=== PATIENT | male | born 1995 | race Caucasian/White ===

== ENCOUNTER 2021-04-06 05:51 | Emergency (ER) | payer SELFPAY ==
[~2021-04-06] VITALS: Ht 180 cm; Wt 69.8 kg
[2021-04-06 05:58] VITALS: BP 126/82
--- NOTE | 2021-04-06 06:26 | ED Respiratory ---
General Chief Complaint: Respiratory Problems Stated Complaint: TROUBLE BREATHING/COUGH Nursing Triage Note: PT STATES HE HAS HAD DIFFICULTIES BREATHING X2 HOURS. WOKE UP AND HAS BEEN UNABLE TO FALL BACK ASLEEP DUE TO NOT BEING ABLE TO TAKE A DEEP BREATH. PT AMBULATORY TO ROOM, VSS, AFEBRILE. PT SPEAKING FULL SENTENCES W/O DIFFICULTY. History of Present Illness Date Seen by Provider: Apr 06, 2021 Time Seen by Provider: 06:10 Initial Comments 25-year-old male reports feeling like he is having difficulty breathing. Patient reports that started about 2 hours prior coming in. He reports he is feeling like he is got some chest tightness and that he is not able to take full deep breaths. Patient reports a history of asthma/reactive airway disease in the past that has had to have inhaler in the past. Patient denies any fever, chills, cough, chest pain, nausea, vomiting or other systemic complaints. Patient does not currently have an inhaler and has not had a use 1 for least a year. Patient reports he is fully vaccinated for Covid and has no known Covid exposure Allergies and Home Medications Patient Home Medication List Home Medication List Reviewed: Yes Review of Systems Review of Systems Constitutional: No chills, No fever EENTM: no symptoms reported Respiratory: see HPI Cardiovascular: No chest pain, No palpitations Gastrointestinal: no symptoms reported; No abdominal pain, No nausea, No vomiting Genitourinary: no symptoms reported Musculoskeletal: no symptoms reported Skin: no symptoms reported Psychiatric/Neurological: No Symptoms Reported Hematologic/Lymphatic: No Symptoms Reported Immunological/Allergic: no symptoms reported Past [id number] Hx Patient Social History Tobacco Use?: No Use of E-Cig and/or Vaping dev: No Substance use?: No Alcohol Use?: No Pt feels they are or have been: No Physical Exam Vital Signs - First Documented 04/06/21 05:58 Temp 36.8 Pulse 75 Resp 12 B/P (MAP) 126/82 (97) Pulse Ox 100 O2 Delivery Room Air Capillary Refill : Less Than 3 Seconds Height: '" Weight: lbs. oz. kg; 21.00 BMI Method: General Appearance: WD/WN, no apparent distress Neck: full range of motion, supple Respiratory: no respiratory distress, no accessory muscle use, wheezing (Very mild occasional expiratory wheezing bilateral) Cardiovascular: normal peripheral pulses, regular rate, rhythm Gastrointestinal: non tender, soft Neurologic/Psychiatric: media job titles II-XII nml as tested, no motor/sensory deficits, alert, normal mood/affect, oriented x 3 Skin: normal color, warm/dry Progress/Results/Core Measures Suspected Sepsis SIRS Temperature: Pulse: 75 Respiratory Rate: 12 Blood Pressure 126 /82 Mean: 97 Results/Orders Vital Signs/I&O 04/06/21 05:58 Temp 36.8 Pulse 75 Resp 12 B/P (MAP) 126/82 (97) Pulse Ox 100 O2 Delivery Room Air Capillary Refill : Less Than 3 Seconds Blood Pressure Mean: 97 Progress Note : Progress Note Patient with some very minimal occasional mild wheezing. I suspect these may be early in having a reactive airway disease/asthma reaction. This time I do not feel he warrants steroids but I will start him on an inhaler. Patient should follow-up with a primary care provider or return to the ER if his symptoms worsen. Patient stable and discharged home Departure Impression Primary Impression: Wheezing on expiration Additional Impression: History of asthma Disposition: HOME, SELF-CARE Condition: Stable Departure-Patient Inst. Referrals: ALDEN XIAO MD (PCP/Family) Primary Care Physician Patient Instructions: Wheezing, Asthma in Adults Add. Discharge Instructions: Follow-up with your primary care provider, urgent care or return to the ER if symptoms worsen. Use the prescribed inhaler every 4 hours while awake for 24 hours then as needed All discharge instructions reviewed with patient and/or family. Voiced understanding. Scripts Albuterol Sulfate (Ventolin Hfa) 18 Gm Hfa.aer.ad 18 GM INH NEEDED PRN for SHORTNESS OF BREATH, #1 EA 2 puffs every 4 hours as needed Prov: NICOL GILBERT DO 04/06/21 NICOL GILBERT DO Apr 06, 2021 06:26
[2021-04-06] MEDS ORDERED: ALBU18HF2 INH (06:27)
== END 2021-04-06 06:32 | disposition home or self-care (01) ==
LOC: ER FS 05:55
DX: J45.909 Unspecified asthma, uncomplicated (principal)
CPT/HCPCS: 99282